=== PATIENT | female | born 1940 | race Caucasian/White ===

== ENCOUNTER 2016-03-10 17:43 | Inpatient (IN) | payer MEDICARE, MEDICAID ==
[2016-03-10] VITALS (8 sets, daily range): BP systolic 137–209; BP diastolic 77–102; PULSE 77–107; RESP 14–20; TEMP 97.8–98.3; O2SAT 96–98
[~2016-03-10] VITALS: Ht 170.2 cm; Wt 118.9 kg
[2016-03-10] MEDS ORDERED: SODIUM CHLOR 0.9% 1000 ML INJ 1,000 ML IV ONE (17:50)
[2016-03-10 18:01] LABS: AUTOMATED NEUTROPHIL # 6.4 TH/MM3 (1.8-7.7); BASOPHIL # 0.1 TH/MM3 (0-0.2); BASOPHIL % 0.9 % (0.0-2.0); EOSINOPHIL # 0.7 TH/MM3 (0-0.4); EOSINOPHIL % 7.7 % (0.0-4.0); HEMATOCRIT 41.4 % (35.0-46.0); HEMO FLAGS DIFF FINAL; LYMPH % 16.4 % (9.0-44.0); LYMPHOCYTE # 1.5 TH/MM3 (1.0-4.8); MEAN CELL VOLUME 81.8 FL (80.0-100.0); MEAN CORPUSCULAR HEMOGLOBIN 27.3 PG (27.0-34.0); MEAN CORPUSCULAR HGB CONC 33.4 % (32.0-36.0); MONO % 5.2 % (0.0-8.0); NEUT % 69.8 % (16.0-70.0); PLATELET COUNT 270 TH/MM3 (150-450); RED BLOOD COUNT 5.07 MIL/MM3 (4.00-5.30); RED CELL DISTRIBUTION WIDTH 16.4 % (11.6-17.2); WHITE BLOOD COUNT 9.1 TH/MM3 (4.0-11.0)
[2016-03-10 18:18] LABS: I-STAT POTASSIUM 3.8 MMOL/L (3.5-4.9)
--- NOTE | 2016-03-10 18:21 | RADRPT ---
EXAM DATE/TIME: 03/10/2016 17:54 [facility] COMPARISON: No previous studies available for comparison. INDICATIONS : Stroke alert, slurred speech, expressive aphasia. RADIATION DOSE: 56.35 CTDIvol (mGy) This report was called by Dr. Malone to at 6:15 PM MEDICAL HISTORY : Non-responsive. SURGICAL HISTORY : Non-responsive. ENCOUNTER: Initial ACUITY: 1 day PAIN SCALE: Non-responsive LOCATION: Cranial TECHNIQUE: Multiple contiguous axial images were obtained of the head. Using automated exposure control and adjustment of the mA and/or kV according to patient size, radiation dose was kept as low as reasonably achievable to obtain optimal diagnostic quality images. FINDINGS: The ventricles and cortical sulci are distended. There is decreased density in the periventricular w gómez matter. No extra-axial fluid collections, areas of hemorrhage, mass effect or acute infarction are seen. The patient does have low density in the left side of the midbrain probably from a prior l acunar infarct. The bony structures are grossly intact. CONCLUSION: 1. No acute abnormality is seen. 2. Age-related atrophy. 3. Suspected small-vessel ischemic change in the cerebral white matter. 4. Probable old lacunar infarct at the left midbrain. Miquel Malone MD on March 10, 2016 at 18:13 Board Certified Radiologist. This report was verified electronically.
[2016-03-10] MEDS ORDERED: ASPIRIN 300 MG SUPP RECTAL SCH (18:30)
[2016-03-10] MEDS: niCARdipine INJ 25 MG in SODIUM CHLOR 0.9% 250 ML INJ 250 ML IV SCH ×2 (18:30→21:12)
[2016-03-10] MEDS ORDERED: ASPIRIN 600 MG SUPP RECTAL ONE (18:30)
[2016-03-10] MEDS ORDERED: IOHEXOL 350 MG/ML 10 ML VIAL (for RAD DIAG) IV ONE (18:31)
--- NOTE | 2016-03-10 18:46 | RADRPT ---
EXAM DATE/TIME: 03/10/2016 18:07 [facility] COMPARISON: No previous studies available for comparison. INDICATIONS : Stroke alert. IV CONTRAST: 75 cc Omnipaque 350 (iohexol) IV ; Cumulative dose for multiple exams. RADIATION DOSE: 17.67 CTDIvol (mGy) ; Combined studies MEDICAL HISTORY : Non-responsive. SURGICAL HISTORY : Non-responsive. ENCOUNTER: Initial ACUITY: 1 day PAIN SCALE: Non-responsive LOCATION: cranial TECHNIQUE: Volumetric scanning was performed using a multi-row detector CT scanner. The data was post processed with a variety of visualization algorithms including full volume maximum intensity projection, multi -planar sliding thin slab reformation, curved planar reformation, and surface rendering techniques. Using automated exposure control and adjustment of the mA and/or kV according to patient size, radiat ion dose was kept as low as reasonably achievable to obtain optimal diagnostic quality images. FINDINGS: There is excellent visualization of the major intracranial arteries out to the second-order branch ve ssels. There is no evidence for aneurysm, vessel truncation or stenosis, and no evidence for vascula r malformation. Calcifications are seen at the cavernous and supraclinoid portions of the internal ca rotid arteries without significant stenosis. CONCLUSION: No area of occlusion is seen. Miquel Malone MD on March 10, 2016 at 18:42 Board Certified Radiologist. This report was verified electronically.
--- NOTE | 2016-03-10 19:01 | RADRPT ---
EXAM DATE/TIME: 03/10/2016 18:07 [facility] COMPARISON: No previous studies available for comparison. INDICATIONS : Stroke alert. IV CONTRAST: 75 cc Omnipaque 350 (iohexol) IV RADIATION DOSE: 17.67 CTDIvol (mGy) ; Combined studies MEDICAL HISTORY : Non-responsive. SURGICAL HISTORY : Non-responsive. ENCOUNTER: Initial ACUITY: 1 day PAIN SCALE: Non-responsive LOCATION: Bilateral neck. TECHNIQUE: Volumetric scanning was performed using a multirow detector CT scanner. The data was post processed with a variety of visualization algorithms including full-volume maximum intensity projection, multip lanar sliding thin-slab reformation, curved-planar reformation, and surface-rendering techniques. Us ing automated exposure control and adjustment of the mA and/or kV according to patient size, radiatio n dose was kept as low as reasonably achievable to obtain optimal diagnostic quality images. FINDINGS: AORTIC ARCH: There is a three-vessel origin of the great vessels from the aorta. No evidence of ostial narrowing. RIGHT CAROTID: The right common carotid artery is normal in size. There is calcified plaque seen at the carotid bul b region. There does appear to be a prominent area of soft tissue plaque at the proximal internal ca rotid artery. It appears the lumen is narrowed between 50% and 60% at this region. The luminal narr owing is best seen on the axial source images. The more distal aspect of the internal carotid artery on the right is patent. The external carotid artery is patent on the right. LEFT CAROTID: The left common carotid artery is normal. There is mild plaque at the carotid bulb region. A signif icant stenosis is not appreciated. The internal carotid artery is patent. VERTEBRALS: The vertebral arteries have a symmetric diameter. No stenotic lesions are seen. CONCLUSION: Mild stenosis at the proximal right internal carotid artery with the lumen narrowed by 50% to 60% bes t seen on the axial source images. Miquel Malone MD on March 10, 2016 at 18:46 Board Certified Radiologist. This report was verified electronically.
[2016-03-10] MEDS: SODIUM CHLOR 0.9% 1000 ML INJ 1,000 ML IV SCH (19:05)
[2016-03-10 19:10] LABS: APTT (PATIENT) 25.2 SEC (24.3-30.1); INTERNATIONAL NORMALIZED RATIO 0.9 RATIO
[2016-03-10] MEDS ORDERED: ASPIRIN 300 MG SUPP RECTAL ONE (19:15)
--- NOTE | 2016-03-10 19:22 | PD ---
HPI Chief Complaint: Stroke Alert Time Seen by Provider: 17:50 Travel History International Travel<30 days: Yes Contact w/Intl Traveler<30days: Yes History of Present Illness HPI This 75 year-old woman presents emergency department complaining of confusion and difficulty speaking. She resides at a skilled nursing. EMS reports the patient was last seen well at 2:30 PM. She is normally awake and conversant and oriented. The reportedly went back to check on her she was confused. Speaking with the daughter however, she reports that they called her before 2: 00 and stated that the patient is been acting abnormally all day. Patient has a history of stroke, as well as diabetes and hypertension. Daughter is Lupe Pack [phone]. [facility] Past Medical History Narrative Medical Diabetes CAD, no history of MT, no history of stent Hypothyroidism Anxiety Morbid obesity Hypertension Social History Tobacco Use: No Allergies-Medications (Allergen,Severity, Reaction): Coded Allergies: Penicillin (Verified Allergy, Unknown, 03/10/16) Review of Systems ROS Limitations: Clinical Condition Physical Exam Narrative GENERAL: 75 year-old woman, confused and aphasic, difficult to get history on. SKIN: Warm and dry. HEAD: Atraumatic. Normocephalic. EYES: Pupils equal and round. No scleral icterus. No injection or drainage. Maybe a little bit of right gaze preference. ENT: No nasal bleeding or discharge. Mucous membranes pink and moist. NECK: Trachea midline. No JVD. CARDIOVASCULAR: Regular rate and rhythm. No murmur appreciated. RESPIRATORY: No accessory muscle use. Clear to auscultation. Breath sounds equal bilaterally. GASTROINTESTINAL: Abdomen soft, non-tender, nondistended. Hepatic and splenic margins not palpable. MUSCULOSKELETAL: No obvious deformities. No edema. NEUROLOGICAL: Awake and alert. No obvious facial asymmetry. She may have a little bit of rightward gaze preference very difficult for direct testing is a patient aphasic and asked medication problems. She appears generally weak, but I don't see any obvious asymmetry. Strength exam was completed by RN, noted a little bit more lower extremity drift on the left. PSYCHIATRIC: Appropriate mood and affect; insight and judgment normal. Data Data Last Documented VS Vital Signs Date Time Temp Pulse Resp B/P Pulse Ox O2 Delivery O2 Flow Rate FiO2 03/10/16 19:04 107 15 199/97 98 Nasal Cannula 2 Orders Diet Npo (03/10/16 Dinner) Activity Bed Rest (03/10/16 ) Electrocardiogram (03/10/16 ) I-Stat Creatinine (03/10/16 17:50) I-Stat Profile (03/10/16 17:50) Prothrombin Time / Inr (Pt) (03/10/16 17:50) Act Partial Throm Time (Ptt) (03/10/16 17:50) Complete Blood Count With Diff (03/10/16 17:50) Fibrinogen (03/10/16 17:50) Creatine Kinase (Cpk) (03/10/16 17:50) Troponin I (03/10/16 17:50) Ua Includes Microscopic (03/10/16 17:50) Drug Screen, Random Urine (03/10/16 17:50) Type And Screen (03/10/16 17:50) Ct Brain W/O Iv Contrast(Rout) (03/10/16 ) Consult Neurology (03/10/16 ) Blood Glucose (03/10/16 17:50) Ecg Monitoring (03/10/16 17:50) Neuro Checks Q2HX12,Q4H (03/10/16 17:50) Nursing Bedside Swallow Assess .ONCE (03/10/16 17:50) Iv Access Insert/Monitor (03/10/16 17:50) NPO (03/10/16 17:50) Oximetry (03/10/16 17:50) Oxygen Administration (03/10/16 17:50) Sodium Chlor 0.9% 1000 Ml Inj (Ns 1000 M (03/10/16 17:50) Resp Oxygen Gene C Titrat 1-4 L (03/10/16 17:50) Cath For Specimen (03/10/16 17:50) Cta Brain W Iv Contrast W 3d (03/10/16 17:50) Cta Neck W Iv Contrast W 3d (03/10/16 17:50) Nicardipine Inj (Cardene Inj) (03/10/16 18:00) Nicardipine Inj (Cardene Inj) (03/10/16 18:01) Aspirin Supp (Aspirin Supp) (03/10/16 18:30) Echo 2d Comp W/Dopp(Routine) (03/10/16 ) Mri Brain W/O Contrast (03/10/16 ) St Request For Service (03/10/16 18:18) Consult Pt Eval & Tx Oob (03/10/16 18:18) Scd Bilateral/Knee High KYLEE.QSHIFT (03/10/16 18:18) ^ Fall Precautions (03/10/16 18:18) ^ Textile Cutting Machine Operator / Telemetry (03/10/16 18:18) Neuro Checks . ORDERED (03/10/16 18:18) Lipid Profile (03/10/16 18:18) Hemoglobin (Hgb) A1c (03/10/16 18:18) Vitamin B12 (03/10/16 18:18) Westergren Sedimentation Rate (03/10/16 18:18) Thyroid Stimulating Hormone (03/10/16 18:18) Heparin Inj (Heparin Inj) (03/10/16 21:00) Aspirin Supp (Aspirin Supp) (03/10/16 18:30) Iohexol 350 Inj (Omnipaque 350 Inj) (03/10/16 18:31) (Hub Use Only)Inp Phy Cons/Ref (03/10/16 ) Aspirin Supp (Aspirin Supp) (03/10/16 19:15) Labs Laboratory Tests Test 03/10/16 17:42 White Blood Count 9.1 TH/MM3 Red Blood Count 5.07 MIL/MM3 Hemoglobin 13.8 GM/DL Bedside Hemoglobin 13.3 G/DL Hematocrit 41.4 % Bedside Hematocrit 39.0 % Mean Corpuscular Volume 81.8 FL Mean Corpuscular Hemoglobin 27.3 PG Mean Corpuscular Hemoglobin 33.4 % Concent Red Cell Distribution Width 16.4 % Platelet Count 270 TH/MM3 Mean Platelet Volume 8.8 FL Neutrophils (%) (Auto) 69.8 % Lymphocytes (%) (Auto) 16.4 % Monocytes (%) (Auto) 5.2 % Eosinophils (%) (Auto) 7.7 % Basophils (%) (Auto) 0.9 % Neutrophils # (Auto) 6.4 TH/MM3 Lymphocytes # (Auto) 1.5 TH/MM3 Monocytes # (Auto) 0.5 TH/MM3 Eosinophils # (Auto) 0.7 TH/MM3 Basophils # (Auto) 0.1 TH/MM3 CBC Comment DIFF FINAL Differential Comment Bedside Sodium 141 MMOL/L Bedside Potassium 3.8 MMOL/L Bedside Chloride 109 MMOL/L Bedside Blood Urea Nitrogen 25 MG/DL Bedside Creatinine 0.7 MG/DL Bedside Glucose 107 MG/DL Total Creatine Kinase 32 U/L Troponin I 0.03 NG/ML Blood Type O NEGATIVE Antibody Screen NEGATIVE Blood Bank Comment MDM Medical Screen Exam Complete: Yes Emergency Medical Condition: Yes Differential Diagnosis CVA, infection, arrhythmia, other Narrative Course Medical decision making 75 year-old woman presents emergency Department with what appears to be aphasia in strokelike symptoms. According to the daughter she was called about 2 PM and RN at state that the patient had not been acting right all day. She is multiple risk factors for adverse events including previous CVA, diabetes, advanced age, and prolonged symptoms. Given this, I had a discussion with Dr. Karolina browne are both in agreement patient is not a candidate for TPA at this time. Patient will be admitted for further evaluation and treatment. Critical Care Narrative Aggregate critical care time was 35 minutes. Time to perform other separately billable procedures was not included in the critical care time. My time did not include minutes spent treating any other patients simultaneously or on activities that did not directly contribute to the patient's treatment. The services I provided to this patient were to treat and/or prevent clinically significant deterioration that could result in: , disability, worsening stroke outcome, intracranial bleed, other. I provided critical care services requiring my management, as noted below: Chart data review, documentation time, medication orders and management, vital sign assessments/reviewing monitor data, ordering and reviewing lab tests, ordering and interpreting/reviewing x-rays and diagnostic studies, care of the patient and discussion of the patient with the admitting physicians. Stroke Alert NIHSS NIH Stroke Scale Result: 17 NIHSS Time Completed: 17:55 Thrombolytic Contraindications Contraindications Comment: Patient with symptoms greater than 4 hours. Procedures Interpretation(s) My review of EKG: Sinus rhythm at a rate of 104 with first-degree AV block, leftward axis, right bundle branch block, no definite evidence of acute ischemia. LABS: CBC: Unremarkable Chemistries unremarkable CT head: Suspect small vessel ischemic change, no acute abnormality, age- related atrophy, probable infarcts the left mid brain. Diagnosis Diagnosis: Primary Impression: Acute CVA (cerebrovascular accident) Ike Liu MD Mar 10, 2016 19:22
[2016-03-10 19:27] LABS: HDL CHOLESTEROL 40.5 MG/DL (40.0-60.0); LDL CHOLESTEROL 113 MG/DL (0-99)
--- NOTE | 2016-03-10 19:29 | HHI.HP ---
[facility] Asher Herrera MD Admission Diagnosis acute CVA Diagnoses: (1) Acute CVA (cerebrovascular accident) Diagnosis: Principal (2) UTI (urinary tract infection) Diagnosis: Principal (3) HTN (hypertension) Diagnosis: Principal (4) DM (diabetes mellitus) Diagnosis: Principal Travel History International Travel<30 Days: Yes Contact w/Intl Traveler <30 Da: Yes Traveled to Known Affected Are: No History of Present Illness This is a 75-year-old female with a PMH of HTN, DM, Anxiety, Recurrent UTI and CAD who is brought to the ER by EMS as a Stroke Alert. Per family, patient lives at a SNF and was noted to be acting strangely by staff. Last seen normal at approx 2pm. Upon EMS arrival, pt w/ Aphasia. 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 Dr. Gonzalez consulted by ER physician, pt not candidate for TPA. Per Daughter, pt is supposed to be getting ASA at SNF but she's unsure if she's actually getting her medications. On arrival, BP 209/102, HR 77, O2 sat 98% on RA, Afebrile. Currently BP 199/97 , HR 107. CBC essentially unremarkable. Chemistry unremarkable. Troponin negative. UA with UTI. CTA Head/Neck and MRI Brain pending. Pt slightly improved, however persistent expressive aphasia. Review of Systems Other ROS: 14 point review of systems otherwise negative. Past Family Social History Past Medical History PMH: HTN, DM, Anxiety, Recurrent UTI and CAD Past Surgical History PAST SURGICAL HISTORY: None Allergies: Coded Allergies: Penicillin (Verified Allergy, Unknown, 03/10/16) Family History PAST FAMILY HISTORY: Reviewed, positive for DM and CAD Social History PAST SOCIAL HISTORY: Negative for alcohol, tobacco or drugs. Patient resides at a SNF Physical Exam Vital Signs Vital Signs Date Time Temp Pulse Resp B/P Pulse Ox O2 Delivery O2 Flow Rate FiO2 03/10/16 19:04 107 15 199/97 98 Nasal Cannula 2 03/10/16 18:59 15 98 Room Air 2 03/10/16 17:50 96 Nasal Cannula 2.00 03/10/16 17:45 98.3 77 18 209/102 98 Physical Exam PE: GENERAL: Pleasant elderly white female in no acute distress. Daughter and son- in-law at bedside. HEENT: PERRLA, EOMI. No scleral icterus or conjunctival pallor. No lid lag or facial droop. +Expressive aphasia CARDIOVASCULAR: Regular rate and rhythm. No obvious murmurs to auscultation. No chest tenderness to palpation. RESPIRATORY: No obvious rhonchi or wheezing. Clear to auscultation. Breath sounds equal bilaterally. GASTROINTESTINAL: Abdomen soft, non-tender, nondistended. BS normal. MUSCULOSKELETAL: Extremities without clubbing, cyanosis, or edema. No obvious deformities. NEUROLOGICAL: Awake, alert and oriented x4, understands questions, tries to answer but expressive aphasia. No focal neurologic deficits. Moving both upper and lower extremities spontaneously. Laboratory Laboratory Tests Test 03/10/16 17:42 White Blood Count 9.1 Red Blood Count 5.07 Hemoglobin 13.8 Bedside Hemoglobin 13.3 Hematocrit 41.4 Bedside Hematocrit 39.0 Mean Corpuscular Volume 81.8 Mean Corpuscular Hemoglobin 27.3 Mean Corpuscular Hemoglobin 33.4 Concent Red Cell Distribution Width 16.4 Platelet Count 270 Mean Platelet Volume 8.8 Neutrophils (%) (Auto) 69.8 Lymphocytes (%) (Auto) 16.4 Monocytes (%) (Auto) 5.2 Eosinophils (%) (Auto) 7.7 Basophils (%) (Auto) 0.9 Neutrophils # (Auto) 6.4 Lymphocytes # (Auto) 1.5 Monocytes # (Auto) 0.5 Eosinophils # (Auto) 0.7 Basophils # (Auto) 0.1 CBC Comment DIFF FINAL Differential Comment Erythrocyte Sedimentation Rate 11 Bedside Sodium 141 Bedside Potassium 3.8 Bedside Chloride 109 Bedside Blood Urea Nitrogen 25 Bedside Creatinine 0.7 Bedside Glucose 107 Total Creatine Kinase 32 Troponin I 0.03 Triglycerides Level 191 Cholesterol Level 192 LDL Cholesterol 113 HDL Cholesterol 40.5 Cholesterol/HDL Ratio 4.74 Vitamin B12 Level 382 Thyroid Stimulating Hormone 1.280 3rd Gen Blood Type O NEGATIVE Antibody Screen NEGATIVE Blood Bank Comment Result Diagram: 03/10/16 8427 Assessment and Plan Problem List: (1) Acute CVA (cerebrovascular accident) ICD Code: I63.9 Status: Acute (2) UTI (urinary tract infection) ICD Code: N39.0 Status: Acute (3) HTN (hypertension) ICD Code: I10 Status: Acute (4) DM (diabetes mellitus) ICD Code: E11.9 Status: Acute Assessment and Plan A/P: 1. Acute CVA: brought at Stroke Alert by EMS for acute onset of aphasia, last seen normal at approx 2pm per report. CT Head w/ no acute findings, probable old lacunar infarct left mid brain, images reviewed by me. Dr. Gonzalez consulted by ER physician, pt not TPA candidate. Per Daughter, pt on ASA 81mg qd. CTA Head/Neck and MRI Brain pending. Neuro checks. PT/OT/Speech therapy. Check Lipid Profile, Hgb A1c. Neurology to evaluate further. NPO, IVF. 2. HTN: BP 209/102, HR 77 on arrival, currently 199/97, HR 107. Permissive HTN. Vasotec prn for BP >220 systolic. 3. DM: Sliding scale w/ Accu-Cheks. Check Hgb A1c. Hold Metformin and Glipizide. 4. UTI: H/o Recurrent UTI. U/a w/ UTI. Start Cipro IV, IVF, repeat labs in am. 5. DVT Prophylaxis: SCD/Teds. 6. Social work for d/c planning as needed. 7. Case discussed w/ ER physician at length. Physician Certification 2 Midnight Certification Type: Admission for Inpatient Services Order for Inpatient Services The services are ordered in accordance with Medicare regulations or non- Medicare payer requirements, as applicable. In the case of services not specified as inpatient-only, they are appropriately provided as inpatient services in accordance with the 2-midnight benchmark. Estimated LOS (days): 2 days is the estimated time the patient will need to remain in the hospital, assuming treatment plan goals are met and no additional complications. Post-Hospital Plan: Not yet determined Vielka Sheth MD Mar 10, 2016 19:29
[2016-03-10] MEDS ORDERED: GLUCAGON 1 MG/ML VIAL IM/SQ PRN (19:30)
[2016-03-10] MEDS ORDERED: SODIUM CHLORIDE 0.9% FLUSH 5 ML FLUSH IVF PRN (19:30)
[2016-03-10] MEDS ORDERED: ENALAPRILAT 1.25 MG/ML VIAL IV PRN (19:30)
[2016-03-10] MEDS ORDERED: DEXTROSE 50% IN WATER 50 ML VIAL(D50) IV PUSH PRN (19:30)
[2016-03-10 19:34] LABS: BLOOD, URINE NEG (NEG); COMMENT (UR) CULTURE INDICATED; GLUCOSE,URINE 150 mg/dL (NEG); KETONE, URINE NEG (NEG); NITRITE,URINE NEG (NEG); PH, URINE 7.5 (5.0-8.5); SQUAMOUS EPITHELIAL CELL URINE 1 /hpf (0-5); URINE COLOR COLORLESS (YELLW/STRAW)
[2016-03-10 19:35] LABS: AMPHETAMINE, URINE NEG (NEG); BARBITURATES, URINE NEG (NEG); COCAINE, URINE NEG (NEG)
[2016-03-10] MEDS ORDERED: METF1000 PO (19:51)
[2016-03-10] MEDS ORDERED: MECL12.574 PO (19:51)
[2016-03-10] MEDS ORDERED: LORA-392 PO (19:51)
[2016-03-10] MEDS ORDERED: DIFL150T PO (19:51)
[2016-03-10] MEDS ORDERED: MILKSUS PO (19:51)
[2016-03-10] MEDS ORDERED: VENL1CAP38 PO (19:51)
[2016-03-10] MEDS ORDERED: NAPR220T95 PO (19:51)
[2016-03-10] MEDS ORDERED: GLIP10TA6 PO (19:51)
[2016-03-10] MEDS ORDERED: NYST15T TOPICAL (19:51)
[2016-03-10] MEDS ORDERED: ASPI1TAB69 PO (19:51)
[2016-03-10] MEDS ORDERED: MACR100C2 PO (19:51)
[2016-03-10] MEDS: ONDANSETRON HCL 4 MG/2 ML VIAL IV PUSH PRN (20:11)
--- NOTE | 2016-03-10 20:17 | RADRPT ---
EXAM DATE/TIME: 03/10/2016 19:33 [facility] COMPARISON: No previous studies available for comparison. INDICATIONS : Expressive aphasia. MEDICAL HISTORY : Diabetes mellitus type 2. Hypertension. SURGICAL HISTORY : None. ENCOUNTER: Initial ACUITY: 1 day PAIN SCORE: 0/10 LOCATION: cranial TECHNIQUE: Multiplanar, multisequence MRI of the brain was performed without contrast. FINDINGS: The ventricles and cortical sulci are widened. There is some increased signal seen in the periventri cular white matter on the FLAIR images. No extra-axial fluid collections, areas of hemorrhage, mass effect or acute infarction are seen. CONCLUSION: 1. No acute abnormality seen. 2. Age-related atrophy. 3. Periventricular demyelination likely from small-vessel ischemic change. Miquel Malone MD on March 10, 2016 at 20:04 Board Certified Radiologist. This report was verified electronically.
[2016-03-10] MEDS: CIPROFLOXACIN 400 MG PREMIX 200 ML IV SCH (20:42)
[2016-03-10] MEDS: SODIUM CHLORIDE 0.9% FLUSH 5 ML FLUSH IVF SCH (20:42)
[2016-03-10] MEDS: INSULIN ASPART SUPPLEMENTAL SCALE SQ SCH (21:00)
[2016-03-10] MEDS: HEPARIN SODIUM - SQ 10,000 UNITS/ML VIAL SQ SCH (21:19)
[2016-03-11] VITALS (7 sets, daily range): BP systolic 125–166; BP diastolic 67–95; PULSE 77–99; RESP 18–22; TEMP 97.3–98.4; O2SAT 95–98
[2016-03-11] MEDS: LORazepam 2 MG/ML VIAL IV PUSH PRN ×3 (00:43→20:10)
[2016-03-11] MEDS: INSULIN ASPART SUPPLEMENTAL SCALE SQ SCH ×4 (07:00→23:21)
[2016-03-11 07:17] LABS: HDL CHOLESTEROL 41.4 MG/DL (40.0-60.0); LDL CHOLESTEROL 110 MG/DL (0-99)
[2016-03-11] MEDS ORDERED: ASPIRIN 300 MG SUPP PR SCH (09:00)
[2016-03-11 09:47] LABS: HEMOGLOBIN A1a 1.1 %; HEMOGLOBIN Ao 78.6 %; HEMOGLOBIN LA1C 2.9 %; HEMOGLOBIN P3 4.7 %
[2016-03-11 09:57] LABS: HEMOGLOBIN A1a 1.1 %; HEMOGLOBIN A1b 2.9 %; HEMOGLOBIN Ao 79.2 %; HEMOGLOBIN LA1C 2.5 %; HEMOGLOBIN P3 4.6 %
[2016-03-11] MEDS: HEPARIN SODIUM - SQ 10,000 UNITS/ML VIAL SQ SCH ×2 (10:01→20:10)
[2016-03-11] MEDS: SODIUM CHLORIDE 0.9% FLUSH 5 ML FLUSH IVF SCH ×2 (10:37→20:12)
[2016-03-11] MEDS: CIPROFLOXACIN 400 MG PREMIX 200 ML IV SCH ×2 (10:37→23:21)
--- NOTE | 2016-03-11 11:25 | HHI.PR ---
Subjective Remarks Did not sleep overnight. Agitated on/off. With difficulty speaking per daughter at bedside. Patiet is sleepy at this time and not able to give much history. Moved arms and legs. Has dry skin. Objective Vitals Vital Signs Date Time Temp Pulse Resp B/P Pulse Ox O2 Delivery O2 Flow Rate FiO2 03/11/16 08:00 97.9 77 22 126/68 95 03/11/16 06:11 97.3 95 20 147/95 97 03/10/16 23:29 98.0 90 20 142/82 97 03/10/16 22:19 97.8 101 20 137/77 98 03/10/16 20:32 101 14 177/92 97 Nasal Cannula 2 03/10/16 20:00 98 Nasal Cannula 2.00 03/10/16 19:04 107 15 199/97 98 Nasal Cannula 2 03/10/16 18:59 15 98 Room Air 2 03/10/16 17:50 96 Nasal Cannula 2.00 03/10/16 17:50 18 98 Nasal Cannula 3 03/10/16 17:50 98 Nasal Cannula 3 03/10/16 17:45 98.3 77 18 209/102 98 Result Diagram: 03/10/16 1742 Imaging Last Impressions Neck CTA 03/10/160 Signed Impressions: Service Date/Time: Thursday, March 10, 2016 18:07 - CONCLUSION: Mild stenosis at the proximal right internal carotid artery with the lumen narrowed by 50%% to 60%% best seen on the axial source images. Miquel Malone MD Head CTA 03/10/16 1750 Signed Impressions: Service Date/Time: Thursday, March 10, 2016 18:07 - CONCLUSION: No area of occlusion is seen. Miquel Malone MD Head CT 03/10/16 0000 Signed Impressions: Service Date/Time: Thursday, March 10, 2016 17:54 - CONCLUSION: 1. No acute abnormality is seen. 2. Age-related atrophy. 3. Suspected small-vessel ischemic change in the cerebral white matter. 4. Probable old lacunar infarct at the left midbrain. Miquel Malone MD Brain MRI 03/10/16 0000 Signed Impressions: Service Date/Time: Thursday, March 10, 2016 19:33 - CONCLUSION: 1. No acute abnormality seen. 2. Age-related atrophy. 3. Periventricular demyelination likely from small-vessel ischemic change. Miquel Malone MD Objective Remarks GENERAL: Pleasant elderly white female in no acute distress. Daughter and son- in-law at bedside. HEENT: PERRLA, EOMI. No scleral icterus or conjunctival pallor. No lid lag or facial droop. +Expressive aphasia CARDIOVASCULAR: Regular rate and rhythm. No obvious murmurs to auscultation. No chest tenderness to palpation. RESPIRATORY: No obvious rhonchi or wheezing. Clear to auscultation. Breath sounds equal bilaterally. GASTROINTESTINAL: Abdomen soft, non-tender, nondistended. BS normal. MUSCULOSKELETAL: Extremities without clubbing, cyanosis, or edema. No obvious deformities. NEUROLOGICAL: Awake, alert and oriented x4, understands questions, tries to answer but expressive aphasia. No focal neurologic deficits. Moving both upper and lower extremities spontaneously. A/P Problem List: (1) Acute CVA (cerebrovascular accident) ICD Code: I63.9 Status: Acute (2) UTI (urinary tract infection) ICD Code: N39.0 Status: Acute (3) HTN (hypertension) ICD Code: I10 Status: Acute (4) DM (diabetes mellitus) ICD Code: E11.9 Status: Acute Assessment and Plan 1. Acute CVA: brought at Stroke Alert by EMS for acute onset of aphasia, last seen normal at approx 2pm per report. CT Head w/ no acute findings, probable old lacunar infarct left mid brain, images reviewed by me. Dr. Gonzalez consulted by ER physician, pt not TPA candidate. Per Daughter, pt on ASA 81mg qd. CTA Head/Neck reviewed Mild stenosis at the proximal right internal carotid artery with the lumen narrowed by 50%% to 60%% best seen on the axial source images. MRI Brain reviewed 1. No acute abnormality seen. 2. Age-related atrophy. 3. Periventricular demyelination likely from small-vessel ischemic change. Neuro checks. PT/OT/Speech therapy. Check Lipid Profile, Hgb A1c. Neurology to evaluate further. NPO, IVF. 2. HTN: BP 209/102, HR 77 on arrival, currently 199/97, HR 107. Permissive HTN. Vasotec prn for BP >220 systolic. BP better controlled. 3. DM2: Sliding scale w/ Accu-Cheks. Check Hgb A1c. Hold Metformin and Glipizide. 4. UTI: H/o Recurrent UTI. U/a w/ UTI. Start Cipro IV, IVF, repeat labs in am. 5. DVT Prophylaxis: SCD/Teds. Case management for d/c planning as needed. Discussed with the patient , nurse, family at bedside Jennifer Sotelo MD Mar 11, 2016 11:25
[2016-03-11] MEDS ORDERED: HALOPERIDOL LACTATE 5 MG/ML AMP IM PRN (11:45)
[2016-03-11] MEDS ORDERED: RESP: ALBUTEROL 2.5 MG/IPRATROPIUM 0.5 MG NEB (PRN) NEB (11:45)
--- NOTE | 2016-03-11 14:41 | PD.CONS ---
History of Present Illness Service Neurology Consult Requested By er Reason for Consult stroke alert Primary Care Physician Asher Herrera MD History of Present Illness 75-year-old female with a PMH of HTN, DM, Anxiety, Recurrent UTI and CAD who is brought to the ER by EMS as a Stroke Alert. Per family, patient lives at a SNF and was noted to be acting strangely by staff. last normal unknown. . Upon EMS arrival, pt w/ Aphasia. 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 mri brain no acute stroke. apparently underlying dementia. hx of recurrent uti's. has had some agitation on the floor. speech has improved. pt poor hx. mri brain-no acute stroke. cta rt carotid 50-60%. cta brain nml. placed on aspirin. on it at home. Review of Systems Other as above and admit hp Past Family Social History Past Medical History PMH: HTN, DM, Anxiety, Recurrent UTI and CAD Past Surgical History PAST SURGICAL HISTORY: None Allergies: Coded Allergies: Penicillin (Verified Allergy, Unknown, 03/10/16) Family History PAST FAMILY HISTORY: Reviewed, positive for DM and CAD Social History PAST SOCIAL HISTORY: Negative for alcohol, tobacco or drugs. Patient resides at a SNF Review of Systems All other ROS: ROS reviewed as documented in chart Past Family Social History Allergies: Coded Allergies: Penicillin (Verified Allergy, Unknown, 03/10/16) Active Ordered Medications Current Medications Medications (Trade) Dose Ordered Sig/Arlene Route Start Time Stop Time Status Last Admin (Heparin Inj) 5,000 units BID SQ 03/10/16 21:00 03/11/16 10:01 (NS Flush) 2 ml BID IVF 03/10/16 21:00 03/11/16 10:37 IV Flush 2 ml 2 ml UNSCH PRN IVF 03/10/16 19:30 (NS 1000 ml Inj) 1,000 ml @ 70 mls/hr [id number] IV 03/10/16 19:27 03/10/16 19:05 (Vasotec Inj) 1.25 mg Q4H PRN IV 03/10/16 19:30 (Aspirin Supp) 300 mg DAILY MN 03/11/16 09:00 03/11/16 13:02 (D50w (Vial) Inj) 25 ml UNSCH PRN IV PUSH 03/10/16 19:30 Glucagon 1 mg 1 mg UNSCH PRN IM/SQ 03/10/16 19:30 (Cipro 400 Mg Premix) 200 ml @ 200 mls/hr Q12H IV 03/10/16 21:00 03/11/16 10:37 (Zofran Inj) 4 mg Q6HR PRN IV PUSH 03/10/16 20:15 03/10/16 20:11 (Ativan Inj) 0.5 mg Q4H PRN IV PUSH 03/10/16 20:30 03/11/16 06:36 (Haldol Inj) 2 mg Q4H PRN IM 03/11/16 11:45 Exam I&O / VS Vital Signs Date Time Temp Pulse Resp B/P Pulse Ox O2 Delivery O2 Flow Rate FiO2 03/11/16 08:00 97.9 77 22 126/68 95 03/11/16 07:45 95 21 03/11/16 06:11 97.3 95 20 147/95 97 03/10/16 23:29 98.0 90 20 142/82 97 03/10/16 22:19 97.8 101 20 137/77 98 03/10/16 20:32 101 14 177/92 97 Nasal Cannula 2 03/10/16 20:00 98 Nasal Cannula 2.00 03/10/16 19:04 107 15 199/97 98 Nasal Cannula 2 03/10/16 18:59 15 98 Room Air 2 03/10/16 17:50 96 Nasal Cannula 2.00 03/10/16 17:50 18 98 Nasal Cannula 3 03/10/16 17:50 98 Nasal Cannula 3 03/10/16 17:45 98.3 77 18 209/102 98 General: Alert and Oriented, No acute distress Eye: EOMI Respiratory: Non-labored respirations Neurologic: Alert, Normal motor, No focal defects, CN II-XII intact, Normal DTR 's Exam Comments alert, ox 1-2. not to date, follows, eomi, ou 3mm sluggish, vff grossly full, banks to gravity, no drift, msr sym, sensory/cerebellar limited 2/2 mental status , no clonus, planter flexor Review/Management Diagnosis/Plan: (1) Acute encephalopathy Plan: questionable tia vs related to uti ?underlying dementia recs change to plavix f/u carotid u/s eeg p.t/s.t tx uti if needed- per medical d/c planning back to [place] (2) DM (diabetes mellitus) Plan: poorly controlled hba1c 9.0 may contribute to recurrent uti's (3) HTN (hypertension) (4) UTI (urinary tract infection) Problem Qualifiers (1) DM (diabetes mellitus): (2) HTN (hypertension): Qualified Code: I10 - Essential hypertension (3) UTI (urinary tract infection): Deep Gonzalez MD Mar 11, 2016 14:41
[2016-03-11] MEDS: CLOPIDOGREL 75 MG TAB PO SCH (20:10)
[2016-03-11] MEDS: ATORVASTATIN 40 MG TAB PO SCH (20:12)
[2016-03-12] VITALS (21 sets, daily range): BP systolic 126–190; BP diastolic 7–100; PULSE 59–82; RESP 16–20; TEMP 97.6–98.4; O2SAT 95–97
[2016-03-12] MEDS: SODIUM CHLOR 0.9% 1000 ML INJ 1,000 ML IV SCH ×2 (00:03→14:21)
[2016-03-12 05:09] LABS: AUTOMATED NEUTROPHIL # 4.5 TH/MM3 (1.8-7.7); BASOPHIL # 0.1 TH/MM3 (0-0.2); BASOPHIL % 0.9 % (0.0-2.0); EOSINOPHIL # 0.8 TH/MM3 (0-0.4); EOSINOPHIL % 10.8 % (0.0-4.0); HEMATOCRIT 37.7 % (35.0-46.0); HEMO FLAGS DIFF FINAL; LYMPH % 22.7 % (9.0-44.0); LYMPHOCYTE # 1.8 TH/MM3 (1.0-4.8); MEAN CELL VOLUME 83.3 FL (80.0-100.0); MEAN CORPUSCULAR HEMOGLOBIN 26.9 PG (27.0-34.0); MEAN CORPUSCULAR HGB CONC 32.3 % (32.0-36.0); NEUT % 57.6 % (16.0-70.0); PLATELET COUNT 261 TH/MM3 (150-450); RED BLOOD COUNT 4.52 MIL/MM3 (4.00-5.30); RED CELL DISTRIBUTION WIDTH 16.7 % (11.6-17.2); WHITE BLOOD COUNT 7.8 TH/MM3 (4.0-11.0)
[2016-03-12 05:34] LABS: BICARBONATE 28.6 MEQ/L (21.0-32.0); MAGNESIUM 1.4 MG/DL (1.5-2.5); POTASSIUM 3.3 MEQ/L (3.5-5.1)
[2016-03-12] MEDS: INSULIN ASPART SUPPLEMENTAL SCALE SQ SCH ×4 (07:00→21:00)
--- NOTE | 2016-03-12 07:46 | HHI.PR ---
Subjective Remarks More awake and alert x name and . Says she wants to eat regular food. No n/v/ d/c. Says she can swallow. No motor /sensory deficit. Speech improved. No fever or chills. No cough. Objective Vitals Vital Signs Date Time Temp Pulse Resp B/P Pulse Ox O2 Delivery O2 Flow Rate FiO2 03/12/16 06:00 65 03/12/16 05:00 69 03/12/16 04:00 59 03/12/16 03:00 71 03/12/16 02:00 72 03/12/16 01:00 79 03/12/16 00:34 98.4 82 20 126/70 95 03/12/16 00:00 81 03/11/16 23:00 99 03/11/16 20:30 98.3 85 20 141/89 96 03/11/16 17:00 98.4 84 18 166/75 96 03/11/16 12:00 98.0 81 20 125/67 98 03/11/16 08:00 97.9 77 22 126/68 95 03/11/16 07:45 95 21 Result Diagram: 03/12/16 0334 03/12/16 0334 Imaging Last Impressions Neck CTA 03/10/161749 Signed Impressions: Service Date/Time: Thursday, March 10, 2016 18:07 - CONCLUSION: Mild stenosis at the proximal right internal carotid artery with the lumen narrowed by 50%% to 60%% best seen on the axial source images. Miquel Malone MD Head CTA 03/10/16 1750 Signed Impressions: Service Date/Time: Thursday, March 10, 2016 18:07 - CONCLUSION: No area of occlusion is seen. Miquel Malone MD Head CT 03/10/16 0000 Signed Impressions: Service Date/Time: Thursday, March 10, 2016 17:54 - CONCLUSION: 1. No acute abnormality is seen. 2. Age-related atrophy. 3. Suspected small-vessel ischemic change in the cerebral white matter. 4. Probable old lacunar infarct at the left midbrain. Miquel Malone MD Brain MRI 03/10/16 0000 Signed Impressions: Service Date/Time: Thursday, March 10, 2016 19:33 - CONCLUSION: 1. No acute abnormality seen. 2. Age-related atrophy. 3. Periventricular demyelination likely from small-vessel ischemic change. Miquel Malone MD Objective Remarks GENERAL: Pleasant elderly white female in no acute distress. Daughter and son- in-law at bedside. HEENT: PERRLA, EOMI. No scleral icterus or conjunctival pallor. No lid lag or facial droop. +Expressive aphasia CARDIOVASCULAR: Regular rate and rhythm. No obvious murmurs to auscultation. No chest tenderness to palpation. RESPIRATORY: No obvious rhonchi or wheezing. Clear to auscultation. Breath sounds equal bilaterally. GASTROINTESTINAL: Abdomen soft, non-tender, nondistended. BS normal. MUSCULOSKELETAL: Extremities without clubbing, cyanosis, or edema. No obvious deformities. NEUROLOGICAL: Awake, alert and oriented x4, understands questions, tries to answer but expressive aphasia. No focal neurologic deficits. Moving both upper and lower extremities spontaneously. A/P Problem List: (1) Acute CVA (cerebrovascular accident) ICD Code: I63.9 Status: Acute (2) UTI (urinary tract infection) ICD Code: N39.0 Status: Acute (3) HTN (hypertension) ICD Code: I10 Status: Acute (4) DM (diabetes mellitus) ICD Code: E11.9 Status: Acute Assessment and Plan 1. ? Acute CVA: Acute encephalopathy related to poss UTI, hypertensive encephalopathy , vascular dementia brought at Stroke Alert by EMS for acute onset of aphasia, last seen normal at approx 2pm per report. CT Head w/ no acute findings, probable old lacunar infarct left mid brain, images reviewed by me. Dr. Gonzalez consulted by ER physician, pt not TPA candidate. Per Daughter, pt on ASA 81mg qd. CTA Head/Neck reviewed Mild stenosis at the proximal right internal carotid artery with the lumen narrowed by 50%% to 60%% best seen on the axial source images. MRI Brain reviewed 1. No acute abnormality seen. 2. Age-related atrophy. 3. Periventricular demyelination likely from small-vessel ischemic change. Neuro checks. PT/OT/Speech therapy. Check Lipid Profile, Hgb A1c. Neurology to evaluate further. NPO, IVF. 2. HTN: BP 209/102, HR 77 on arrival, currently 199/97, HR 107. Permissive HTN. Vasotec prn for BP >220 systolic. BP better controlled. 3. DM2: Sliding scale w/ Accu-Cheks. Check Hgb A1c. Hold Metformin and Glipizide. 4. UTI: H/o Recurrent UTI. U/a w/ UTI. Cont Cipro IV, IVF. 5. DVT Prophylaxis: SCD/Teds. Case management for d/c planning as needed. Discussed with the patient, nurse, family at bedside Problem Qualifiers (1) UTI (urinary tract infection): (2) HTN (hypertension): Qualified Code: I10 - Essential hypertension (3) DM (diabetes mellitus): Jennifer Sotelo MD Mar 12, 2016 07:46
[2016-03-12] MEDS: HEPARIN SODIUM - SQ 10,000 UNITS/ML VIAL SQ SCH ×2 (08:40→21:10)
[2016-03-12] MEDS: CLOPIDOGREL 75 MG TAB PO SCH (08:40)
[2016-03-12] MEDS: SODIUM CHLORIDE 0.9% FLUSH 5 ML FLUSH IVF SCH (08:41)
[2016-03-12] MEDS: LORazepam 2 MG/ML VIAL IV PUSH PRN ×3 (08:41→22:59)
[2016-03-12] MEDS: CIPROFLOXACIN 400 MG PREMIX 200 ML IV SCH ×2 (08:41→21:11)
--- NOTE | 2016-03-12 11:39 | PQ ---
Physician Query Response Document PATIENT: RANJANA CARNES : 1940 ADMIT DATE: 03/10/2016 7:24 PM DISCH DATE: RESPONDING PROVIDER #: [email or web address] QUERY TEXT: Clarification of Clinical Diagnostic Findings Please clarify documentation or clinical relevance for the clinical / diagnostic findings OF ACUTE CV A or whether those are insignificant or unable to be further specified. 1) ACUTE CVA PRESENT 2) ACUTE CVA RULED OUT 3) OTHER, PLEASE EXPLAIN The patient's Clinical Indicators include: PATIENT PRESENTED A STROKE ALERT PER PROGRESS NOTE 03/12/16:Assessment and Plan 1. ? Acute CVA: Acute encephalopathy related to poss UTI, hypertensive encephalopathy , vascular dementia brought at Stroke Alert by EMS for acute onset of aphasia, last seen normal at approx 2pm per report. CT Head w/ no acute findings, probable old lacunar infarct left mid brain, images reviewed by me. Dr. Gonzalez consulted by ER physician, pt not TPA candidate. Per Daughter, pt on ASA 81mg qd. CTA Head/Neck reviewed Mild stenosis at the proximal right internal carotid artery with the lumen na rrowed by 50%% to 60%% best seen on the axial source images. MRI Brain reviewed 1. No acute abnormality seen. 2. Age-related atrophy. 3. Periventricular demye lination likely from small-vessel ischemic change. Query created by: Imelda Lopez on 03/12/2016 9:59 AM RESPONSE TEXT: Acute CVA rulled out. Patient with small vessel disease. Electronically signed by: Jennifer Sotelo MD 03/12/2016 11:35 AM
--- NOTE | 2016-03-12 12:22 | RADRPT ---
EXAM DATE/TIME: 03/12/2016 09:39 [facility] COMPARISON: No previous studies available for comparison. INDICATIONS : Abnormal CTA. MEDICAL HISTORY : Hypertension. Transient ischemic attack. Diabetes. Coronary artery disease. UTI's. SURGICAL HISTORY : None. ENCOUNTER: Initial ACUITY: 1 day PAIN SCORE: 0/10 LOCATION: Bilateral neck PEAK SYSTOLIC VELOCITIES (cm/sec): ICA/CCA RATIO: Right: 1.1 Left: 0.9 ICA: Right: 107 Left: 71 CCA: Right: 99 Left: 76 ECA: Right: 44 Left: 94 VERTEBRAL: Right: 54 antegrade Left: 58 antegrade Elevated flow velocities and ICA/CCA ratios have been found to correlate with increased degrees of vessel stenosis, calculated as percentage of diameter relative to a normal segment of distal ICA/CCA FINDINGS: RIGHT CAROTID: Scattered noncalcified atheromatous plaque. Utilizing grayscale analysis there is less than 50% lumin al narrowing of the proximal ICA. ICA waveform shows some spectral broadening a brisk upstroke and an tegrade diastolic flow remains. LEFT CAROTID: Scattered partially calcified plaque. No significant stenosis is visualized. The waveforms are withi n normal limits. VERTEBRAL ARTERIES: Antegrade flow is seen in both vertebral arteries. MISCELLANEOUS: None. CONCLUSION: 1. Scattered atherosclerotic plaque with less than 50% stenosis involving the right ICA and a no sten osis involving the left ICA. 2. Antegrade flow involving both vertebral arteries. Miguel Hernandez Jr., MD on March 12, 2016 at 12:12 Board Certified Radiologist. This report was verified electronically.
[2016-03-12] MEDS ORDERED: ACETAMINOPHEN/HYDROcodone 325 MG/5 MG TAB PO PRN (16:45)
--- NOTE | 2016-03-12 17:07 | EC ---
Study Study Date:03/12/2016 STUDY CONCLUSIONS SUMMARY - Left ventricle: The cavity size was normal. Wall thickness was increased increased in a pattern of mild to moderate LVH. Systolic function was normal. The estimated ejection fraction was 55%. Wall motion was normal; there were no regional wall motion abnormalities. - Right ventricle: The cavity size was moderately dilated. Wall thickness was normal. If LV function is below 40, please consider prescribing an ACEI or ARB or document rationale for non-use. PROCEDURE DATA STUDY STATUS: Elective. Procedure: Transthoracic echocardiography. Image quality was good. Scanning was performed from the parasternal, apical, and subcostal acoustic windows. Study completion: The patient tolerated the procedure well. Transthoracic echocardiography. M-mode, complete 2D, complete spectral Doppler, and color Doppler. Patient status: Inpatient. CARDIAC ANATOMY LEFT VENTRICLE: The cavity size was normal. Wall thickness was increased increased in a pattern of mild to moderate LVH. Systolic function was normal. The estimated ejection fraction was 55%. Wall motion was normal; there were no regional wall motion abnormalities. AORTIC VALVE: Trileaflet; normal thickness leaflets. Doppler: Transvalvular velocity was within the normal range. There was no stenosis. No regurgitation. AORTA: Aortic root: The aortic root was normal in size. MITRAL VALVE: Structurally normal valve. Doppler: Transvalvular velocity was within the normal range. There was no evidence for stenosis. Trace regurgitation. LEFT ATRIUM: The atrium was normal in size. RIGHT VENTRICLE: The cavity size was moderately dilated. Wall thickness was normal. PULMONIC VALVE: Doppler: Transvalvular velocity was within the normal range. There was no evidence for stenosis. No regurgitation. TRICUSPID VALVE: Structurally normal valve. Doppler: Transvalvular velocity was within the normal range. Trace regurgitation. PULMONARY ARTERY: The main pulmonary artery was normal-sized. Systolic pressure was within the normal range. RIGHT ATRIUM: The atrium was normal in size. PERICARDIUM: There was no pericardial effusion. SYSTEMIC VEINS: Inferior vena cava: The vessel was normal in size. BASIC MEASUREMENTS ADULT NORMAL Left ventricle LV internal dimension, ED, chordal level, *42.6 mm 43-52 PLAX LV internal dimension, ES, chordal level, 32.5 mm 23-38 PLAX Fractional shortening, chordal level, PLAX *24 % >29 LV posterior wall thickness, ED 12.4 mm IVS/LVPW ratio, ED 1.23 <1.3 Ventricular septum Septal thickness, ED 15.2 mm Aortic valve Leaflet separation 16 mm 15-26 Right ventricle RV internal dimension, ED, PLAX 35.5 mm 19-38 BASIC MEASUREMENTS ADULT NORMAL Aortic valve Leaflet separation 16 mm 15-26 Aorta Root diameter, ED *38 mm 20-37 Left atrium Anterior-posterior dimension, ES 31 mm 19-40 LA/aortic root ratio 0.82 LEGEND: Mean values are shown as u=mean value. Asterisk (*) davis values outside specified normal range. Prepared and signed by Nicolás Paz [id number]
--- NOTE | 2016-03-12 20:43 | EKG ---
Date Performed: 03/10/2016 Time Performed: 18:37:02 PTAGE: 75 years EKG: Probable Sinus rhythm vs ATRIAL FLUTTER/TACHYCARDIA WITH RAPID VENTRICULAR RESPONSE RIGHT BUNDLE BRANCH BLOCK LEFT ANTERIO R FASCICULAR BLOCK LEFT VENTRICULAR HYPERTROPHY AND ST-T CHANGE ANTEROLATERAL MYOCARDIAL INFARCTION A BNORMAL ECG NO PREVIOUS TRACING DOCTOR: Simon Tyler Interpretating Date/Time 03/12/2016 20:41:43
[2016-03-12] MEDS: ATORVASTATIN 40 MG TAB PO SCH (21:08)
[2016-03-12] MEDS ORDERED: diphenhydrAMINE HCL 25 MG CAP PO ONE (23:45)
[2016-03-13 00:10] VITALS: BP 133/72; PULSE 70; RESP 18; TEMP 96.5; O2SAT 95
[2016-03-13 05:24] VITALS: BP 130/67; PULSE 83; RESP 17; TEMP 97.9; O2SAT 96
[2016-03-13] MEDS: INSULIN ASPART SUPPLEMENTAL SCALE SQ SCH ×3 (06:42→15:54)
--- NOTE | 2016-03-13 06:44 | MG ---
cc: SARA GARCIA M.D. Lab No: [id number]__ Date: 03/12/2016 Age: 75 Sex: F Race: ___ REFERRING PHYSICIAN Dr. Gonzalez HISTORY EEG was obtained on this 75-year-old patient being evaluated for confusion and speech difficulty. DESCRIPTION The patient is awake and drowsy. The EEG shows some artifact and a fair amount of alpha activity. There are intermixed theta rhythms bilaterally. There is beta activity. The background appears to be reactive. Photic stimulation shows no overt change. Some theta rhythms are noted intermixed with the alpha and beta activity. Hyperventilation was not performed. INTERPRETATION Abnormal EEG because of mild slowing diffusely suggesting a diffuse disturbance of cerebral function. No epileptiform features are present. MD RISA Asif/DJL /6:50 PM /6:42 AM
[2016-03-13 08:00] VITALS: BP 177/77; PULSE 74; RESP 18; TEMP 98.1; O2SAT 98
[2016-03-13] MEDS: HEPARIN SODIUM - SQ 10,000 UNITS/ML VIAL SQ SCH (08:26)
[2016-03-13] MEDS: CIPROFLOXACIN 400 MG PREMIX 200 ML IV SCH (08:26)
[2016-03-13] MEDS: CLOPIDOGREL 75 MG TAB PO SCH (08:29)
[2016-03-13] MEDS: SODIUM CHLOR 0.9% 1000 ML INJ 1,000 ML IV SCH (08:32)
[2016-03-13] MEDS: SODIUM CHLORIDE 0.9% FLUSH 5 ML FLUSH IVF SCH (08:39)
--- NOTE | 2016-03-13 08:48 | HHI.PR ---
Review/Management Diagnosis/Plan: (1) Acute encephalopathy Plan: htn encephalopathy vs questionable tia vs related to uti ?underlying dementia exam stable recs on plavix f/u carotid u/s-<50% stenosis ok to d/c to rehab BP control wt loss eeg-no sz outpatient f/u with us in 2-3 weeks (2) DM (diabetes mellitus) Plan: poorly controlled hba1c 9.0 may contribute to recurrent uti's (3) HTN (hypertension) (4) UTI (urinary tract infection) Subjective Subjective Comments No acute events reported No headache No chest pain No dyspnea Active Medications Current Medications Medications (Trade) Dose Ordered Sig/Arlene Route Start Time Stop Time Status Last Admin (Heparin Inj) 5,000 units BID SQ 03/10/16 21:00 03/13/16 08:26 (NS Flush) 2 ml BID IVF 03/10/16 21:00 03/12/16 08:41 IV Flush 2 ml 2 ml UNSCH PRN IVF 03/10/16 19:30 (NS 1000 ml Inj) 1,000 ml @ 70 mls/hr [id number] IV 03/10/16 19:27 03/13/16 08:32 (Vasotec Inj) 1.25 mg Q4H PRN IV 03/10/16 19:30 (D50w (Vial) Inj) 25 ml UNSCH PRN IV PUSH 03/10/16 19:30 Glucagon 1 mg 1 mg UNSCH PRN IM/SQ 03/10/16 19:30 (Cipro 400 Mg Premix) 200 ml @ 200 mls/hr Q12H IV 03/10/16 21:00 03/13/16 08:26 (Zofran Inj) 4 mg Q6HR PRN IV PUSH 03/10/16 20:15 03/10/16 20:11 (Ativan Inj) 0.5 mg Q4H PRN IV PUSH 03/10/16 20:30 03/12/16 22:59 (Haldol Inj) 2 mg Q4H PRN IM 03/11/16 11:45 (Plavix) 75 mg DAILY PO 03/11/16 18:15 03/12/16 08:40 (Lipitor) 40 mg HS PO 03/11/16 21:00 03/12/16 21:08 ([place] 5-325 Mg) 1 tab Q4H PRN PO 03/12/16 16:45 Allergies Allergies Coded Allergies Penicillin (Verified Allergy, Unknown, 03/10/16) Review of Systems All other ROS: ROS reviewed as documented in chart Exam I&O / VS 03/12/16 03/12/16 03/13/16 15:00 23:00 07:00 Intake Total 1720 ml 120 ml Balance 1720 ml 120 ml Intake Oral 750 ml 120 ml IV Total 970 ml # Voids 3 2 # Bowel Movements 1 0 Vital Signs Date Time Temp Pulse Resp B/P Pulse Ox O2 Delivery O2 Flow Rate FiO2 03/13/16 05:24 97.9 83 17 130/67 96 03/13/16 00:10 96.5 70 18 133/72 95 03/12/16 22:02 97 21 03/12/16 20:14 97.6 79 18 160/76 95 03/12/16 16:30 169/86 03/12/16 16:00 98.1 75 16 190/100 97 03/12/16 16:00 78 03/12/16 15:00 71 03/12/16 14:00 81 03/12/16 13:00 78 03/12/16 12:00 78 03/12/16 12:00 97.9 78 16 179/93 97 03/12/16 11:00 67 03/12/16 10:00 74 03/12/16 09:00 66 General: Alert and Oriented, No acute distress Eye: EOMI Respiratory: Non-labored respirations Neurologic: Alert, Normal motor, No focal defects, CN II-XII intact, Normal DTR 's Exam Comments alert, ox 2. "i;m in [facility]" quit asking me all these questions", able to name objects, morbidly obese, follows, eomi, ou 3mm sluggish, vff grossly full, banks to gravity, no drift, msr sym, withdraws to tactile in all 4 ext, no clonus, planter flexor Objective Micro and Labs Date/Time Procedure Status Source Growth 03/10/16 18:50 Urine Culture - Final Complete Urine Clean Catch Proteus Mirabilis Problem Qualifiers (1) DM (diabetes mellitus): (2) HTN (hypertension): Qualified Code: I10 - Essential hypertension (3) UTI (urinary tract infection): Deep Gonzalez MD Mar 13, 2016 08:48
[2016-03-13 10:54] VITALS: O2SAT 98
[2016-03-13] MEDS ORDERED: NORC5TAB PO (11:49)
[2016-03-13] MEDS ORDERED: LORA-392 PO (11:49)
[2016-03-13] MEDS ORDERED: PLAV75TA29 PO (11:49)
[2016-03-13] MEDS ORDERED: LIPI40TA PO (11:49)
--- NOTE | 2016-03-13 11:50 | HHI.DCPOC ---
Discharge Care Plan Goals to Promote Your Health * To prevent worsening of your condition and complications * To maintain your health at the optimal level Directions to Meet Your Goals Take your medications as prescribed Follow your dietary instruction Follow activity as directed Keep your appointments as scheduled Take your immunizations and boosters as scheduled If your symptoms worsen call your PCP, if no PCP go to Urgent Care Center or Emergency Room Smoking is Dangerous to Your Health. Avoid second hand smoke Call the 24-hour hour crisis hotline for domestic abuse at Jennifer Sotelo MD Mar 13, 2016 11:50
--- NOTE | 2016-03-13 11:50 | HHI.DS ---
Discharge Summary Admission Date Mar 10, 2016 at 19:24 Discharge Date: Mar 13, 2016 Admitting Diagnosis acute CVA (1) Acute encephalopathy ICD Code: G93.40 Diagnosis: Principal (2) UTI (urinary tract infection) ICD Code: N39.0 Diagnosis: Principal (3) HTN (hypertension) ICD Code: I10 Diagnosis: Secondary (4) DM (diabetes mellitus) ICD Code: E11.9 Diagnosis: Secondary Procedures none Brief History - From Admission This is a 75-year-old female with a PMH of HTN, DM, Anxiety, Recurrent UTI and CAD who is brought to the ER by EMS as a Stroke Alert. Per family, patient lives at a SNF and was noted to be acting strangely by staff. Last seen normal at approx 2pm. Upon EMS arrival, pt w/ Aphasia. 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 Dr. Gonzalez consulted by ER physician, pt not candidate for TPA. Per Daughter, pt is supposed to be getting ASA at SNF but she's unsure if she's actually getting her medications. On arrival, BP 209/102, HR 77, O2 sat 98% on RA, Afebrile. Currently BP 199/97 , HR 107. CBC essentially unremarkable. Chemistry unremarkable. Troponin negative. UA with UTI. CTA Head/Neck and MRI Brain pending. Pt slightly improved, however persistent expressive aphasia. CBC/BMP: 03/12/16 0334 03/12/16 0334 Significant Findings Laboratory Tests Test 03/10/16 03/10/16 03/11/16 03/12/16 17:42 18:50 05:40 03:34 Bedside Glucose 107 MG/DL (60-95) Hemoglobin A1c 9.0 % (4.3-6.0) 9.0 % (4.3-6.0) Triglycerides Level 191 MG/DL 165 MG/DL (42-150) (42-150) LDL Cholesterol 113 MG/DL 110 MG/DL (0-99) (0-99) Eosinophils (%) (Auto) 7.7 % (0.0-4.0) 10.8 % (0.0-4.0) Eosinophils # (Auto) 0.7 TH/MM3 0.8 TH/MM3 (0-0.4) (0-0.4) Urine Glucose (UA) 150 mg/dL (NEG) Urine Leukocyte Esterase SMALL (NEG) Urine WBC 10 /hpf (0-5) Mean Corpuscular Hemoglobin 26.9 PG (27.0-34.0) Potassium Level 3.3 MEQ/L (3.5-5.1) Estimat Glomerular Filtration 70 ML/MIN (>89) Rate Random Glucose 193 MG/DL (74-106) Calcium Level 8.0 MG/DL (8.5-10.1) Magnesium Level 1.4 MG/DL (1.5-2.5) Imaging Last Impressions Carotid Artery Ultrasound 03/12/16 0000 Signed Impressions: Service Date/Time: Saturday, March 12, 2016 09:39 - CONCLUSION: 1. Scattered atherosclerotic plaque with less than 50%% stenosis involving the right ICA and a no stenosis involving the left ICA. 2. Antegrade flow involving both vertebral arteries. Miguel Hernandez Jr., MD Neck CTA [id number] Signed Impressions: Service Date/Time: Thursday, March 10, 2016 18:07 - CONCLUSION: Mild stenosis at the proximal right internal carotid artery with the lumen narrowed by 50%% to 60%% best seen on the axial source images. Miquel Malone MD Head CTA [id number] Signed Impressions: Service Date/Time: Thursday, March 10, 2016 18:07 - CONCLUSION: No area of occlusion is seen. Miquel Malone MD Head CT 03/10/16 0000 Signed Impressions: Service Date/Time: Thursday, March 10, 2016 17:54 - CONCLUSION: 1. No acute abnormality is seen. 2. Age-related atrophy. 3. Suspected small-vessel ischemic change in the cerebral white matter. 4. Probable old lacunar infarct at the left midbrain. Miquel Malone MD Brain MRI 03/10/16 0000 Signed Impressions: Service Date/Time: Thursday, March 10, 2016 19:33 - CONCLUSION: 1. No acute abnormality seen. 2. Age-related atrophy. 3. Periventricular demyelination likely from small-vessel ischemic change. Miquel Malone MD PE at Discharge GENERAL: Pleasant elderly white female in no acute distress. Daughter and son- in-law at bedside. HEENT: PERRLA, EOMI. No scleral icterus or conjunctival pallor. No lid lag or facial droop. +Expressive aphasia CARDIOVASCULAR: Regular rate and rhythm. No obvious murmurs to auscultation. No chest tenderness to palpation. RESPIRATORY: No obvious rhonchi or wheezing. Clear to auscultation. Breath sounds equal bilaterally. GASTROINTESTINAL: Abdomen soft, non-tender, nondistended. BS normal. MUSCULOSKELETAL: Extremities without clubbing, cyanosis, or edema. No obvious deformities. NEUROLOGICAL: Awake, alert and oriented x4, understands questions, tries to answer but expressive aphasia. No focal neurologic deficits. Moving both upper and lower extremities spontaneously. Pt update on day of discharge Feels much better. She is alert and oriented by 3. Had some back pain yesterday , better controlled with paon meds. No n/v/d/c. Eating well. Hospital Course Patient admitted with symptoms of questionable Acute CVA. brought at Stroke Alert by EMS for acute onset of aphasia, last seen normal at approx 2pm per report. CT Head w/ no acute findings, probable old lacunar infarct left mid brain, images reviewed by me. Dr. Gonzalez consulted by ER physician, pt not TPA candidate. Per Daughter, pt on ASA 81mg qd. CTA Head/Neck reviewed Mild stenosis at the proximal right internal carotid artery with the lumen narrowed by 50%% to 60%% best seen on the axial source images. MRI Brain reviewed 1. No acute abnormality seen. 2. Age-related atrophy. 3. Periventricular demyelination likely from small-vessel ischemic change. Neuro checks. PT/OT/Speech therapy. Check Lipid Profile, Hgb A1c. Neurology to evaluate further. EEG negative On plavix. Patient with acute encephalopathy related to poss UTI, hypertensive encephalopathy , vascular dementia She did improve. Her mental status as baseline. She also complained of back pain controlled by pain meds. 2. HTN: BP 209/102, HR 77 on arrival, currently 199/97, HR 107. Permissive HTN. Vasotec prn for BP >220 systolic. BP better controlled. 3. DM2: Sliding scale w/ Accu-Cheks. Check Hgb A1c. Hold Metformin and Glipizide. 4. UTI: H/o Recurrent UTI. U/a w/ UTI. Cont Cipro IV, IVF. U cx with proteus mirabilis will give ceftin PO at DC. Add lactinex. 5. DVT Prophylaxis: SCD/Teds. Improved, cleared by consultants for DC. To follow up as OP with PCP and consultants. Pt Condition on Discharge: Fair Discharge Disposition: Discharge to SNF Discharge Time: > 30 minutes Discharge Instructions DIET: Follow Instructions for: Heart Healthy Diet Speech Therapy-Diet Recommends: Soft Activities you can perform: Regular-No Restrictions Follow up Referrals: Neurology - 2 Weeks PCP Follow-up - 2-3 Days New Medications: Cefuroxime (Ceftin) 250 Mg Tab 250 MG PO BID Infection #14 Ref 0 TAB Hydrocodone-Acetaminophen ([place]) 5-325 mg Tab 1 TAB PO Q8HR PRN PAIN #10 Ref 0 TAB Lactobacillus Acidophilus (Lactinex) 1 Chew 1 TAB CHEW DAILY Nutritional Supplement #30 Ref 0 TAB Atorvastatin (Lipitor) 40 Mg Tab 40 MG PO HS Cholesterol Management #30 TAB Clopidogrel (Plavix) 75 Mg Tab 75 MG PO DAILY Blood Clot Prevention #30 TAB Continued Medications: Aspirin (Aspirin) 81 Mg Tabdr 81 MG PO DAILY TAB Fluconazole (Diflucan) 150 Mg Tab 150 MG PO ONCE Infection #1 Ref 0 TAB Glipizide (Glipizide) 10 Mg Tab 10 MG PO BIDAC Take 30 minutes before a meal Blood Sugar Management #60 Ref 0 TAB Lorazepam (Ativan) 0.5 Mg Tab 0.5 MG PO Q8H PRN ANXIETY AND/OR AGITATION #20 Ref 0 TAB (This prescription has been renewed) Magnesium Hydroxide Liq (Milk of Magnesia Liq) 400 Mg/5 Ml Susp 5 ML PO DAILY PRN CONSTIPATION #1 Ref 0 BOTTLE Meclizine (Meclizine) 12.5 Mg Tab 12.5 MG PO TID PRN VERTIGO Ref 0 TAB Metformin (Metformin) 1,000 Mg Tab 1000 MG PO BIDPC With meals Blood Sugar Management #60 Ref 0 TAB Naproxen Sodium (Aleve) 220 Mg Tab 220 MG PO BID PRN PAIN SCALE 1 TO 4/COUGH Ref 0 TAB Nystatin Topical (Nystatin Topical) 100,000 unit/gm Cream 1 APPLIC TOPICAL BID Infection #15 Ref 0 GM Venlafaxine ER 24 HR (Effexor XR 24 HR) 37.5 Mg Cap 37.5 MG PO DAILY #30 Ref 0 CAP Discontinued Medications: Nitrofurantoin Monohydrate Macrocrystals (Macrobid) 100 Mg Cap 100 MG PO BID Infection Ref 0 CAP Jennifer Sotelo MD Mar 13, 2016 11:50
[2016-03-13] MEDS: LORazepam 2 MG/ML VIAL IV PUSH PRN ×2 (11:52→16:24)
[2016-03-13] MEDS ORDERED: LACTCHW3 CHEW (11:54)
[2016-03-13] MEDS ORDERED: CEFT250T8 PO (11:54)
[2016-03-13 12:00] VITALS: BP 144/91; PULSE 74; RESP 18; TEMP 97.9; O2SAT 96
--- NOTE | 2016-03-13 12:11 | HHI.PR ---
Subjective Remarks Feels much better today. Alert and oriented x3. Had back pain yesterday, controlled by meds. No n/v/d/c. Objective Vitals Vital Signs Date Time Temp Pulse Resp B/P Pulse Ox O2 Delivery O2 Flow Rate FiO2 03/13/16 10:54 98 21 03/13/16 08:00 98.1 74 18 177/77 98 03/13/16 05:24 97.9 83 17 130/67 96 03/13/16 00:10 96.5 70 18 133/72 95 03/12/16 22:02 97 21 03/12/16 20:14 97.6 79 18 160/76 95 03/12/16 16:30 169/86 03/12/16 16:00 98.1 75 16 190/100 97 03/12/16 16:00 78 03/12/16 15:00 71 03/12/16 14:00 81 03/12/16 13:00 78 I/O 03/12/16 03/12/16 03/12/16 03/13/16 03/13/16 03/13/16 07:00 15:00 23:00 07:00 15:00 23:00 Intake Total 1720 ml 120 ml Balance 1720 ml 120 ml Intake Oral 750 ml 120 ml IV Total 970 ml # Voids 3 2 # Bowel Movements 1 0 Result Diagram: 03/12/16 0334 03/12/16 0334 Imaging Last Impressions Carotid Artery Ultrasound 03/12/16 0000 Signed Impressions: Service Date/Time: Saturday, March 12, 2016 09:39 - CONCLUSION: 1. Scattered atherosclerotic plaque with less than 50%% stenosis involving the right ICA and a no stenosis involving the left ICA. 2. Antegrade flow involving both vertebral arteries. Miguel Hernandez Jr., MD Neck CTA 03/10/16 1750 Signed Impressions: Service Date/Time: Thursday, March 10, 2016 18:07 - CONCLUSION: Mild stenosis at the proximal right internal carotid artery with the lumen narrowed by 50%% to 60%% best seen on the axial source images. Miquel Malone MD Head CTA 03/10/16 1750 Signed Impressions: Service Date/Time: Thursday, March 10, 2016 18:07 - CONCLUSION: No area of occlusion is seen. Miquel Malone MD Head CT 03/10/16 0000 Signed Impressions: Service Date/Time: Thursday, March 10, 2016 17:54 - CONCLUSION: 1. No acute abnormality is seen. 2. Age-related atrophy. 3. Suspected small-vessel ischemic change in the cerebral white matter. 4. Probable old lacunar infarct at the left midbrain. Miquel Malone MD Brain MRI 03/10/16 0000 Signed Impressions: Service Date/Time: Thursday, March 10, 2016 19:33 - CONCLUSION: 1. No acute abnormality seen. 2. Age-related atrophy. 3. Periventricular demyelination likely from small-vessel ischemic change. Miquel Malone MD Objective Remarks GENERAL: Pleasant elderly white female in no acute distress. Daughter and son- in-law at bedside. HEENT: PERRLA, EOMI. No scleral icterus or conjunctival pallor. No lid lag or facial droop. +Expressive aphasia CARDIOVASCULAR: Regular rate and rhythm. No obvious murmurs to auscultation. No chest tenderness to palpation. RESPIRATORY: No obvious rhonchi or wheezing. Clear to auscultation. Breath sounds equal bilaterally. GASTROINTESTINAL: Abdomen soft, non-tender, nondistended. BS normal. MUSCULOSKELETAL: Extremities without clubbing, cyanosis, or edema. No obvious deformities. NEUROLOGICAL: Awake, alert and oriented x4, understands questions, tries to answer but expressive aphasia. No focal neurologic deficits. Moving both upper and lower extremities spontaneously. Procedures none A/P Problem List: (1) Acute encephalopathy ICD Code: G93.40 Status: Acute (2) UTI (urinary tract infection) ICD Code: N39.0 Status: Acute (3) HTN (hypertension) ICD Code: I10 Status: Acute (4) DM (diabetes mellitus) ICD Code: E11.9 Status: Acute Assessment and Plan 1. ? Acute CVA: Acute encephalopathy related to poss UTI, hypertensive encephalopathy , vascular dementia brought at Stroke Alert by EMS for acute onset of aphasia, last seen normal at approx 2pm per report. CT Head w/ no acute findings, probable old lacunar infarct left mid brain, images reviewed by me. Dr. Gonzalez consulted by ER physician, pt not TPA candidate. Per Daughter, pt on ASA 81mg qd. CTA Head/Neck reviewed Mild stenosis at the proximal right internal carotid artery with the lumen narrowed by 50%% to 60%% best seen on the axial source images. MRI Brain reviewed 1. No acute abnormality seen. 2. Age-related atrophy. 3. Periventricular demyelination likely from small-vessel ischemic change. Neuro checks. PT/OT/Speech therapy. Check Lipid Profile, Hgb A1c. Neurology to evaluate further. On plavix EEG normal/Dr Wei neuro cleared for DC to follow up a OP 2. HTN: BP 209/102, HR 77 on arrival, currently 199/97, HR 107. Permissive HTN. Vasotec prn for BP >220 systolic. BP better controlled. 3. DM2: Sliding scale w/ Accu-Cheks. Check Hgb A1c. Hold Metformin and Glipizide. 4. UTI: H/o Recurrent UTI. U/a w/ UTI. DC cipro IV. Start ceftin po patient with proteus mirabilis 5. DVT Prophylaxis: SCD/Teds. Case management for d/c planning as needed. Discussed with the patient, nurse, Problem Qualifiers (1) UTI (urinary tract infection): (2) HTN (hypertension): Qualified Code: I10 - Essential hypertension (3) DM (diabetes mellitus): Jennifer Sotelo MD Mar 13, 2016 12:11
[2016-03-13] MEDS ORDERED: CEFUROXIME AXETIL 250 MG TAB PO SCH (13:00)
[2016-03-13 13:16] VITALS: PULSE 80
[2016-03-13] MEDS: ONDANSETRON HCL 4 MG/2 ML VIAL IV PUSH PRN (16:24)
== END 2016-03-13 17:37 | DRG 64 ==
LOC: NEPE 17:43 → NEDA 19:24 → NEPHCDU 22:07 → HCIN 03-11 00:23 → N05B 03-12 19:33
PROVIDERS: ADMIT Hospitalist; ATTEND Hospitalist
DX: I63.9 Cerebral infarction, unspecified (principal); G93.40 Encephalopathy, unspecified; N39.0 Urinary tract infection, site not specified; F03.90 Unspecified dementia, unspecified severity, without behavioral disturbance, psychotic disturbance, mood disturbance, and anxiety; R47.01 Aphasia; B96.4 Proteus (mirabilis) (morganii) as the cause of diseases classified elsewhere; E11.9 Type 2 diabetes mellitus without complications; I10 Essential (primary) hypertension; I25.10 Atherosclerotic heart disease of native coronary artery without angina pectoris; F41.9 Anxiety disorder, unspecified; Z87.440 Personal history of urinary (tract) infections; E03.9 Hypothyroidism, unspecified; M54.9 Dorsalgia, unspecified; E66.01 Morbid (severe) obesity due to excess calories; Z86.73 Personal history of transient ischemic attack (TIA), and cerebral infarction without residual deficits
CPT/HCPCS: 70450; 70496; 70498; 70551; 80048; 80061; 80307; 81001; 82435; 82550; 82565; 82607; 82947; 82948; 83036; 83735; 84132; 84295; 84443; 84484; 84520; 85025; 85384; 85610; 85652; 85730; 86850; 86900; 86901; 87077; 87086; 87186; 93005; 93306; 93880; 94664; 95819; J0744; J1644; J1815; J2060; J2405; J7030; Q9967